=== PATIENT | male | born 1940 | race African-American/Black ===

== ENCOUNTER 2020-09-08 13:37 | Outpatient (CLI) | payer MEDICARE ==
[2020-09-08 14:09] LABS: ALT (SGPT) 21 U/L (8-55); AST (SGOT) 21 U/L (5-34); Alkaline Phosphatase 93 U/L (40-110); Anion Gap 11 mmol/L (10-20); BUN (Urea Nitrogen) 9 mg/dL (8.4-25.7); Bilirubin, Total 0.6 mg/dL (0.2-1.2); Calc. Creatinine Clearance 0 mL/min (70-130); Carbon Dioxide 23 mmol/L (23-31); Cardiac Risk 3.1 (Less than 4.5); Chloride 109 mmol/L (98-107); Cholesterol 123 mg/dl (< 200 Desired); Globulin 3.4 g/dL (2.4-3.5); Glucose 90 mg/dL (83-110); HDL Cholesterol 40 mg/dL (>60 Neg Risk); LDL Cholesterol, Calculated 73 mg/dL; Potassium 3.9 mmol/L (3.5-5.1); Protein, Total 7.4 g/dL (5.8-8.1); Sodium 139 mmol/L (136-145); Triglycerides 49 mg/dL (Less than 150)
[2020-09-08 17:14] LABS: #Basophils 0.1 thou/uL (0.0-0.2); #Eosinphils 0.2 thou/uL (0.0-0.7); #Monocytes 0.5 thou/uL (0.11-0.59); %Basophils 2.1 % (0.0-1.0); %Eosinophils 3.6 % (0.0-10.0); %Lymphocytes 41.5 % (21.0-51.0); %Monocytes 10.5 % (0.0-10.0); %Neutrophils 42.2 % (42.0-75.0); Hemoglobin 13.3 g/dL (14.0-18.0); Mean Corpuscular HGB CONC 29.6 g/dL (32.0-36.0); Mean Corpuscular Hemoglobin 22.5 pg (27.0-31.0); Mean Platelet Volume 8.9 fL (7.4-10.4); Platelet Count 211 thou/uL (130-400); Platelet Morphology Comment Appears Adequate; RBC Distribution Width 13.4 % (11.5-14.5); RBC Morphology Normal; Red Blood Cell (RBC) Count 5.92 mill/uL (4.70-6.10); White Blood Cell (WBC) Count 4.8 thou/uL (4.8-10.8)
== END 2020-09-08 13:38 | disposition home or self-care (01) ==
LOC: MADLAB 13:37
PROVIDERS: ATTEND Family Medicine
DX: I10 Essential (primary) hypertension (principal); E78.5 Hyperlipidemia, unspecified
CPT/HCPCS: 36415; 80053; 80061; 84443; 85025

== ENCOUNTER 2021-02-15 13:12 | Emergency (ER) | payer MEDICARE ==
[2021-02-15] MEDS ORDERED: Sodium Chloride 0.9% 1,000 ML ONE (13:33)
[2021-02-15 14:03] LABS: ALT (SGPT) 48 U/L (8-55); AST (SGOT) 113 U/L (5-34); Albumin 2.8 g/dL (3.4-4.8); Alkaline Phosphatase 318 U/L (40-110); Anion Gap 22 mmol/L (10-20); BUN (Urea Nitrogen) 64 mg/dL (8.4-25.7); Bilirubin, Total 2.5 mg/dL (0.2-1.2); Calc. Creatinine Clearance 0 mL/min (70-130); Carbon Dioxide 14 mmol/L (23-31); Chloride 79 mmol/L (98-107); Globulin 3.4 g/dL (2.4-3.5); Protein, Total 6.2 g/dL (5.8-8.1)
[2021-02-15 14:05] LABS: Hemoglobin 11.5 g/dL (14.0-18.0); Mean Corpuscular HGB CONC 31.8 g/dL (32.0-36.0); Mean Corpuscular Hemoglobin 21.9 pg (27.0-31.0); Mean Corpuscular Volume 68.7 fL (78.0-98.0); Mean Platelet Volume 10.1 fL (7.4-10.4); Platelet Count 51 thou/uL (130-400); RBC Distribution Width 11.7 % (11.5-14.5); Red Blood Cell (RBC) Count 5.28 mill/uL (4.70-6.10); White Blood Cell (WBC) Count 18.4 thou/uL (4.8-10.8)
[2021-02-15 14:11] LABS: Manual Diff?? YES
[2021-02-15 14:12] LABS: MDiff Complete? YES
[2021-02-15 14:16] LABS: Band 12 % (5-11); Lymphocytes 3 % (21-51); Neutrophil 85 % (42-75)
[2021-02-15 14:17] LABS: Anisocytosis SLIGHT = 6-15 cells (100X) (0-5/hpf); Hypochromia SLIGHT = 6-15 cells (100X) (0-5/hpf); Microcytosis SLIGHT = 6-15 cells (100X) (0-5/hpf); Ovalocytes SLIGHT = 2-5 cells (100X) (0-1/hpf); Poikilocytosis SLIGHT = 6-15 cells (100X) (0-5/hpf); Toxic Granulation SLIGHT; Vacuoles SLIGHT
[2021-02-15 14:25] LABS: Glucose 55 mg/dL (83-110); Potassium 2.4 mmol/L (3.5-5.1); Sodium 113 mmol/L (136-145)
[2021-02-15] MEDS ORDERED: Cefepime 2 GM VIAL ONE (14:54)
[2021-02-15] MEDS ORDERED: Sodium Chloride 0.9% 100 ML ONE (14:54)
[2021-02-15 15:46] LABS: Bilirubin Negative (Negative); Blood, Urine Moderate (Negative); Glucose, Urine (Dipstick) Negative (Negative); Ketone, Urine Negative (Negative); Leukocyte Large (Negative); Nitrite Negative (Negative); Protein, Urine (Dipstick) 30 mg/dL (Neg-Trace)
[2021-02-15 15:47] LABS: Bacteria/HPF 4+ HPF (None Seen); Clarity Cloudy (Clear); Squamous Epithelial 0-3 HPF (0-3); WBC/HPF Greater Than 50 HPF (0-3)
[2021-02-15] MEDS ORDERED: Vancomycin HCl 750 MG VIAL ONE (16:09)
[2021-02-15] MEDS ORDERED: Sodium Chloride 0.9% 250 ML 500 ML ONE (16:10)
[2021-02-15 16:11] LABS: SARS-CoV-2 NAA Rapid Test Not Detected (NotDetected)
[2021-02-15] MEDS ORDERED: NS 0.9% w/ 40 MEQ KCL 1,000 ML IV ONE (16:14)
[2021-02-15] MEDS ORDERED: Dextrose 50% Abboject 50 ML SYRINGE ONE (16:34)
[2021-02-15 18:12] LABS: Anion Gap 18 mmol/L (10-20); BUN (Urea Nitrogen) 60 mg/dL (8.4-25.7); Calc. Creatinine Clearance 0 mL/min (70-130); Calcium 7.3 mg/dL (7.8-10.44); Carbon Dioxide 16 mmol/L (23-31); Chloride 86 mmol/L (98-107); Glucose 76 mg/dL (83-110)
[2021-02-15 18:13] LABS: Lactic Acid 4.7 mmol/L (0.5-2.2)
[2021-02-15 18:14] LABS: Potassium 2.6 mmol/L (3.5-5.1); Sodium 117 mmol/L (136-145)
== END 2021-02-15 18:50 | disposition short-term general hospital (02) ==
LOC: MADERS 13:12
DX: A41.9 Sepsis, unspecified organism (principal); N17.9 Acute kidney failure, unspecified; E87.6 Hypokalemia; E87.1 Hypo-osmolality and hyponatremia; N13.30 Unspecified hydronephrosis; N39.0 Urinary tract infection, site not specified; E16.2 Hypoglycemia, unspecified; R94.31 Abnormal electrocardiogram [ECG] [EKG]; Z20.822 Contact with and (suspected) exposure to COVID-19; I10 Essential (primary) hypertension; E78.5 Hyperlipidemia, unspecified; Z86.73 Personal history of transient ischemic attack (TIA), and cerebral infarction without residual deficits; Z79.82 Long term (current) use of aspirin; Z79.899 Other long term (current) drug therapy
CPT/HCPCS: 0240U; 51702; 71045; 74176; 80048; 83605; 83690; 83735; 83880; 87040; 87077; 87086; 87149 ×2; 87186; 93005; 96365; 96366; 96367; 96368; 96375; 96376; 99285; 36415; 80053; 81003; 81015; 84443; 85025; J0692; J3370; J3480; J3490; J7050